=== PATIENT | female | born 1965 | race Caucasian/White ===

== ENCOUNTER 2019-03-23 09:53 | Inpatient (IN) | payer BC, OTHER ==
[~2019-03-23] VITALS: Ht 157.5 cm; Wt 107.5 kg
[2019-03-23] MEDS ORDERED: ONDANSETRON HCL 4MG/2ML INJ ONE (10:34)
[2019-03-23] MEDS ORDERED: SODIUM CHLORIDE 0.9% 1,000 ML IV ONE (10:35)
[2019-03-23] MEDS ORDERED: ACETAMINOPHEN 325MG TABLET PO STA (10:35)
[2019-03-23] MEDS ORDERED: MECLIZINE 25MG TABLET PO ONE (10:45)
[2019-03-23 10:57] LABS: BASOPHILS % 0.5 % (0.0-2.0); EOSINOPHILS % 2.7 % (0.0-5.0); HEMATOCRIT. 38.2 % (36.0-48.0); HEMOGLOBIN. 13.2 g/dL (12.0-16.0); LYMPHOCYTES % 23.3 % (20.0-50.0); MEAN CORPUSCULAR HEMOGLOBIN 30.8 pg (28.0-32.0); MEAN CORPUSCULAR VOLUME 88.8 fL (81.0-99.0); MEAN PLATELET VOLUME 7.1 fl (7.4-10.4); NEUTROPHILS % 65.5 % (40.0-76.0); PLATELET 233 x1000/uL (130-400); RED CELL DISTRIBUTION WIDTH 13.5 % (11.6-14.6)
[2019-03-23] MEDS ORDERED: ONDANSETRON HCL 4MG/2ML INJ IV ONE (11:00)
[2019-03-23 11:04] LABS: CHLORIDE 105 mEq/L (98-107)
[2019-03-23] MEDS ORDERED: POTASSIUM CHLORIDE 20MEQ TABLET SR PO ONE (11:30)
[2019-03-23] MEDS ORDERED: METOCLOPRAMIDE HCL 10MG/2ML VIAL IV ONE (11:45)
[2019-03-23] MEDS ORDERED: MORPHINE SULFATE 2 MG/ML CPJ (NOT FOR IM USE) IV PRN (17:30)
[2019-03-23] MEDS ORDERED: HYDROCODONE/ACETAMINOPHEN 5/325MG TABLET PO PRN (17:30)
[2019-03-23] MEDS ORDERED: LORAZEPAM 2MG/ML CPJ IV PRN (17:30)
[2019-03-23] MEDS ORDERED: MAGNESIUM/ALUMINUM HYDROXIDE/SIMETHICONE 30ML UDC PO PRN (17:30)
[2019-03-23] MEDS ORDERED: ONDANSETRON HCL 4MG/2ML INJ IV PRN (17:30)
[2019-03-23] MEDS ORDERED: IPRATROPIUM/ALBUTEROL 0.5-3(2.5)MG/3ML NEB NEB PRN (17:30)
[2019-03-23] MEDS ORDERED: NA PHOS,M-B/NA PHOS,DI-BA ENEMA 118ML PR PRN (17:30)
[2019-03-23] MEDS ORDERED: GUAIFENESIN 200MG/10ML SUGAR FREE UDC PO PRN (17:30)
[2019-03-23] MEDS ORDERED: CLONIDINE 0.1MG TABLET PO PRN (17:30)
[2019-03-23] MEDS ORDERED: DOCUSATE SODIUM 100MG CAPSULE PO PRN (17:30)
[2019-03-23] MEDS ORDERED: ACETAMINOPHEN 325MG TABLET PO PRN (17:30)
[2019-03-23] MEDS ORDERED: DIPHENHYDRAMINE 50MG/ML VIAL IV PRN (17:30)
[2019-03-24] VITALS (7 sets, daily range): BP systolic 114–135; BP diastolic 63–82
[2019-03-24] MEDS: SODIUM CHLORIDE 0.45% 1,000 ML IV SCH ×2 (02:21→20:29)
[2019-03-24] MEDS ORDERED: DEXTROSE 50% WATER 50ML SYRINGE IV PRN (02:45)
[2019-03-24] MEDS ORDERED: BLOOD SUGAR DIAGNOSTIC STRIP TEST SCH (07:20)
[2019-03-24] MEDS ORDERED: INSULIN LISPRO 100 UNITS/ML SUBCUT SCH ×2 (07:50)
[2019-03-24 08:13] LABS: BASOPHILS % 0.4 % (0.0-2.0); EOSINOPHILS % 2.6 % (0.0-5.0); HEMATOCRIT. 38.3 % (36.0-48.0); HEMOGLOBIN. 13.4 g/dL (12.0-16.0); LYMPHOCYTES % 26.8 % (20.0-50.0); MEAN CORPUSCULAR HEMOGLOBIN 31.2 pg (28.0-32.0); MEAN CORPUSCULAR VOLUME 89.1 fL (81.0-99.0); MEAN PLATELET VOLUME 7.3 fl (7.4-10.4); MONOCYTES % 7.8 % (2.0-8.0); NEUTROPHILS % 62.4 % (40.0-76.0); PLATELET 218 x1000/uL (130-400); RED CELL DISTRIBUTION WIDTH 13.7 % (11.6-14.6)
[2019-03-24 08:41] LABS: CHLORIDE 110 mEq/L (98-107)
[2019-03-24 08:49] LABS: LDL CHOLESTEROL 125 mg/dL (5-100)
[2019-03-24 08:50] LABS: T4 FREE 0.93 ng/dL (0.76-1.46)
[2019-03-24 08:51] LABS: HDL CHOLESTEROL 50 mg/dL (40-59)
[2019-03-24] MEDS: FUROSEMIDE 40MG/4ML VIAL IV SCH (08:58)
[2019-03-24] MEDS: ASPIRIN 81MG EC TABLET PO SCH (08:58)
[2019-03-24] MEDS: ENOXAPARIN 40MG/0.4ML SYR SUBCUT SCH ×2 (08:59→20:29)
[2019-03-24] MEDS ORDERED: POTASSIUM CHLORIDE INJ 40 MEQ in DEXT 5% WATER 250 ML IV NR (09:00)
[2019-03-25] VITALS: BP 119/76
[2019-03-25 04:00] VITALS: BP 158/94
[2019-03-25 08:00] VITALS: BP 135/91
[2019-03-25] MEDS: FUROSEMIDE 40MG/4ML VIAL IV SCH (08:06)
[2019-03-25] MEDS: ENOXAPARIN 40MG/0.4ML SYR SUBCUT SCH (08:06)
[2019-03-25] MEDS: ASPIRIN 81MG EC TABLET PO SCH (08:06)
[2019-03-25 09:34] VITALS: BP 135/91
== END 2019-03-25 11:11 | disposition home or self-care (01) | DRG 312 ==
LOC: ER 09:53 → 6WST 14:13 → EDBEDREQSVC 14:16 → EDBEDREQ 14:16 → EDBEDREQTM 14:16 → ENRESERV 22:33 → CANBEDREQ 03-24 03:10
PROVIDERS: ADMIT Internal Medicine; ATTEND Internal Medicine
DX: R55 Syncope and collapse (principal); E11.9 Type 2 diabetes mellitus without complications; E86.0 Dehydration; E87.6 Hypokalemia; I10 Essential (primary) hypertension; I25.10 Atherosclerotic heart disease of native coronary artery without angina pectoris; Z85.038 Personal history of other malignant neoplasm of large intestine; Z90.49 Acquired absence of other specified parts of digestive tract
CPT/HCPCS: 36415; 71045; 80053; 80061; 82962; 83735; 84439; 84443; 84484; 85025; 93005; 96374; 99285; J1650; J1940; J2405; J2765; J3480; J7030; J7060; J8597

== ENCOUNTER 2021-08-28 08:35 | Emergency (ER) | payer OTHER ==
[~2021-08-28] VITALS: Ht 152.4 cm; Wt 77.0 kg
[2021-08-28] MEDS ORDERED: KETOROLAC 30MG/ML VIAL IM ONE (09:00)
[2021-08-28] MEDS ORDERED: ACETAMINOPHEN 325MG TABLET PO ONE (09:00)
[2021-08-28 09:20] VITALS: BP 176/102
== END 2021-08-28 11:46 | disposition home or self-care (01) ==
LOC: ER 08:46
DX: M25.562 Pain in left knee (principal); I10 Essential (primary) hypertension; W10.8XXA Fall (on) (from) other stairs and steps, initial encounter; Y93.89 Activity, other specified; Y92.89 Other specified places as the place of occurrence of the external cause; Y99.8 Other external cause status
CPT/HCPCS: 29505; 73562; 96372; 99283; J1885